=== PATIENT | female | born 1950 | race Caucasian/White ===

== ENCOUNTER 2020-06-15 18:46 | Emergency (ER) | payer MEDICARE ==
[~2020-06-15] VITALS: Ht 162.6 cm; Wt 53.8 kg
--- NOTE | 2020-06-15 19:13 | NUR ---
69 YEAR OLD FEMALE TO ED FOR 1CM LACERATION TO LEFT 4TH DIGIT. BLEEDING IS CONTROLLED WITH A PRESSURE BANDAGE.
[2020-06-15] MEDS ORDERED: LIDOCAINE-MPF 1%, 5ML ONE (19:18)
[2020-06-15] MEDS ORDERED: LIDOCAINE-MPF 1%, 5ML INFIL ONE (19:30)
[2020-06-15] MEDS ORDERED: DIPH,PERTUSS(ACELL),TET VAC/PF 0.5 ML IM-VACC ONE ×2 (19:35→20:00)
[2020-06-15] MEDS ORDERED: NEOSPORIN OINT. PKT 1 PACKET ONE (20:09)
== END 2020-06-15 20:35 | disposition home or self-care (01) ==
LOC: ED 20:11
DX: S61.215A Laceration without foreign body of left ring finger without damage to nail, initial encounter (principal); W26.0XXA Contact with knife, initial encounter; Y93.89 Activity, other specified; Y92.009 Unspecified place in unspecified non-institutional (private) residence as the place of occurrence of the external cause; Y99.8 Other external cause status
CPT/HCPCS: 12041; 90471; 90715; 99284